=== PATIENT | female | born 1985 | race Caucasian/White ===

== ENCOUNTER 2018-06-02 00:38 | Emergency (ER) | payer BC ==
--- NOTE | 2018-06-02 00:47 | PDOC ---
*Physical Exam - Vital Signs Last Vital Signs Temp Pulse Resp BP Pulse Ox 98.8 F 62 20 112/62 98 06/02/18 00:44 06/02/18 00:44 06/02/18 00:44 06/02/18 00:44 06/02/18 00:44 - Physical Exam Comments: 06/02/18 00:47 The patient was examined by MIGUEL ANGEL Barney under my direct supervision. I personally evaluated the patient. I concur with the above findings and the plan of care. *DC/Admit/Observation/Transfer Diagnosis at time of Disposition: Toothache - Discharge Dispostion Disposition: HOME Condition at time of disposition: Stable - Prescriptions Prescriptions: Oxycodone HCl/Acetaminophen [Percocet 5-325 mg Tablet] 1 tab PO Q6H #20 tablet MDD 4 - Referrals - Patient Instructions Printed Discharge Instructions: DI for Dental Pain Additional Instructions: Be sure to complete your amoxicillin that was prescribed to you by your dentist Motrin for mild pain and Percocet for severe pain No driving or operating heavy machinery while taking Percocet Be sure to keep your appointment to have you to the extraction to tooth #1 Return back to the ER for severe/persistent or worsening symptoms Follow up with the dentist [facility] [phone] [place]: [phone] Monday through Monday: 4 PM to 9 PM Monday and Monday 9 AM to 5 PM - Post Discharge Activity
[2018-06-02] MEDS ORDERED: BUPIVACAINE HCL/PF 0.5% (5MG/ML) 10 ML VIAL ONE (00:52)
[2018-06-02 01:00] VITALS: BP 112/62; PULSE 62; TEMP 98.8; BMI 27.6
--- NOTE | 2018-06-02 01:12 | PDOC ---
History of Present Illness - General Chief Complaint: Toothache Stated Complaint: TOOTHACHE Time Seen by Provider: 06/02/18 00:41 History Source: Patient Exam Limitations: No Limitations - History of Present Illness Initial Comments: 06/02/18 01:29 32-year-old female presents to the emergency department complaining of toothache to right upper molar/tooth #12 days. Patient was seen by her dentist who prescribed her amoxicillin 500 3 times a day with ibuprofen earlier today. Patient states the pain is 8/10 throbbing constant nonradiating pain which kept her up this evening. Patient denies fever, chills, nausea/vomiting, dizziness, difficulty swallowing, tongue swelling, sore throat, facial pain. Past History - Past Medical History Allergies/Adverse Reactions: Allergies Allergy/AdvReac Type Severity Reaction Status Date / Time No Known Allergies Allergy Verified 06/02/18 00:57 Home Medications: Ambulatory Orders Oxycodone HCl/Acetaminophen [Percocet 5-325 mg Tablet] 1 tab PO Q6H #20 tablet MDD 4 06/02/18 COPD: No - Immunization History Immunization Up to Date: Yes - Suicide/Smoking/Psychosocial Hx Smoking History: Never smoked Hx Alcohol Use: Yes (Social) Drug/Substance Use Hx: No Review of Systems - Review of Systems Able to Perform ROS?: Yes Comments:: 06/02/18 01:26 CONSTITUTIONAL: Absent: fever, chills, diaphoresis, generalized weakness, malaise, loss of appetite HEENT: Absent: rhinorrhea, nasal congestion, throat pain, throat swelling, difficulty swallowing, mouth swelling, ear pain, eye pain, visual Changes SKIN: Absent: rash, itching, pallor HEMATOLOGIC/IMMUNOLOGIC: Absent: easy bleeding, easy bruising, lymphadenopathy, frequent infections +Right sided upper molar tooth #1 pain Is the patient limited Khmer proficient: No *Physical Exam - Vital Signs Last Vital Signs Temp Pulse Resp BP Pulse Ox 98.8 F 62 20 112/62 98 06/02/18 00:44 06/02/18 00:44 06/02/18 00:44 06/02/18 00:44 06/02/18 00:44 - Physical Exam Comments: 06/02/18 01:27 GENERAL: Well developed, well nourished. Awake and alert. No acute distress. HEENT: Normocephalic, atraumatic. PERRLA, EOMI. No conjunctival pallor. Sclera are non- icteric. Moist mucous membranes. Oropharynx is clear. NECK: Supple. Full ROM. No JVD. Carotid pulses 2+ and symmetric, without bruits. No thyromegaly. No lymphadenopathy. SKIN: Warm and dry. Normal capillary refill. No rashes. No jaundice. Right upper molar/tooth #1 +pain on percussion neg gum swelling neg trismus neg lymph node swelling Moderate Sedation - Procedure Monitoring Vital Signs: Procedure Monitoring Vital Signs Temperature 98.8 F 06/02/18 00:44 Pulse Rate 62 06/02/18 00:44 Respiratory Rate 20 06/02/18 00:44 Blood Pressure 112/62 06/02/18 00:44 O2 Sat by Pulse Oximetry (%) 98 06/02/18 00:44 *DC/Admit/Observation/Transfer Diagnosis at time of Disposition: Toothache - Discharge Dispostion Disposition: HOME Condition at time of disposition: Stable Decision to Admit order: No - Prescriptions Prescriptions: Oxycodone HCl/Acetaminophen [Percocet 5-325 mg Tablet] 1 tab PO Q6H #20 tablet MDD 4 - Referrals - Patient Instructions Printed Discharge Instructions: DI for Dental Pain Additional Instructions: Be sure to complete your amoxicillin that was prescribed to you by your dentist Motrin for mild pain and Percocet for severe pain No driving or operating heavy machinery while taking Percocet Be sure to keep your appointment to have you to the extraction to tooth #1 Return back to the ER for severe/persistent or worsening symptoms Follow up with the dentist [facility] [phone] [place]: [phone] Monday through Monday: 4 PM to 9 PM Monday and Monday 9 AM to 5 PM - Post Discharge Activity Progress Note - Progress Note Progress Note: Negrito wall available and working at bedside Patient supine [place] to approximately 75 Patient's head firmly against the head rest, position so that the mandible is open and the body of the mandible is palatal the floor 0.5% bupivacaine 3 mL syringe, 27-gauge needle Posterior superior alveolar nerve block Started with the Pamela half open and swung toward me which is standing on the patient's right side at the bedside. As I retracted cheek laterally and locate the intersection of the mucobuccal fold and the junction of molars 1 and 2 Needle was inserted into the intersection and directed towards the posterior lateral maxillary tuberosity/up, back and inward: Along the curvature of the maxilla into the depth of approximately 2 cm. The needle did not make contact with the bone. I aspirated/negative blood return I slowly injected 0.5% bupivacaine 2.5 mL Within 5 minutes, patient's pain scale from 8/10-0.
== END 2018-06-02 01:19 | disposition home or self-care (01) ==
LOC: JER 00:38
PROC: 3E0T3BZ Introduction of Anesthetic Agent into Peripheral Nerves and Plexi, Percutaneous Approach (ICD-10-PCS; principal; 2018-06-02)
DX: K08.89 Other specified disorders of teeth and supporting structures (principal)
CPT/HCPCS: 99282-25